=== PATIENT | female | born 2005 | race Caucasian/White ===

== ENCOUNTER 2023-12-01 19:05 | Emergency (ER) | payer BC, SELFPAY ==
[2023-12-01 19:15] VITALS: BP 143/80; BMI 30.1
[2023-12-01 19:55] LABS: % Basophils 0.7 % (0-2); % Immature Granulocytes 0.3 % (0-0.5); % Lymphocytes 35.2 % (20.5-51.1); % Monocytes 8.1 % (1.7-9.3); % Neutrophils 51.7 % (42.2-75.2); Absolute Eosinophils 0.2 10^3/uL (0-0.7); Absolute Lymphocytes 2.1 10^3/uL (1.2-3.4); Absolute Monocytes 0.5 10^3/uL (0.1-0.6); Absolute Neutrophils 3.1 10^3/uL (1.4-6.5); Hematocrit 38.3 % (37.0-47.0); Hemoglobin 13.2 g/dL (12.0-16.0); Mean Corp Hgb Conc. 34.5 g/dL (33.0-37.0); Mean Corpuscular Hgb 27.3 pg (27.0-31.0); Mean Corpuscular Volume 79.1 fL (81.0-99.0); Mean Platelet Volume 8.9 fL (7.4-10.4); Nucleated Red Blood Cells % 0 %; Platelet Count 459 10^3/uL (130-400); Red Blood Cell Count 4.84 10^6/uL (4.20-5.40); Red Cell Dist. Width 13.2 % (11.5-14.5)
[2023-12-01] MEDS: OMNIPAQUE 50 ML PO (19:58)
[2023-12-01 20:00] LABS: Erythrocyte Sed Rate 13 mm/hour (0-20)
[2023-12-01 20:04] VITALS: BP 109/90
[2023-12-01 20:13] LABS: HCG, Serum Qualitative Screen Negative
[2023-12-01 20:15] LABS: ALT (SGPT) 14 U/L (0-35); AST (SGOT) 26 U/L (14-36); Albumin 4.3 g/dl (3.5-5.0); Alkaline Phosphatase 85 U/L (38-126); Blood Urea Nitrogen 4 mg/dl (7-17); Calcium 9.6 mg/dl (8.4-10.2); Carbon Dioxide 24 mmol/L (22-30); Chloride 102 mmol/L (98-107); Estimated Creatinine Clearance > 125 ml/min; Glucose 99 mg/dl (70-99); Potassium 3.9 mmol/L (3.5-5.1); Sodium 136 mmol/L (135-145); Total Bilirubin 0.5 mg/dl (0.2-1.3); Total Protein 7.4 g/dl (6.3-8.2); eGFR > 60.00
--- NOTE | 2023-12-01 20:40 | ED.GENMED ---
History of Present Illness
General
Chief Complaint: Abdominal Symptoms
Source: patient and family (Mother)
Exam Limitations: none
Time Seen by Provider: 12/01/23 19:20
Nursing documentation reviewed up to this point in time: agreed with
Travel History
Have you had any contact with someone who has COVID-19?: No
Do you have any symptoms of coronavirus? Fever > 100 degrees, chills, cough, shortness of breath, sore throat, loss of taste or smell, muscle aches, or headache?: No
History of Present Illness
History of Present Illness:
17-year-old female presents for evaluation of abdominal pain and bloody diarrhea. Patient reports that she has had intermittent episodes of bloody diarrhea for the past 4 months she feels they are increasing in frequency. She says she has had
daily bloody stools for almost a month. She says that she has associated crampy abdominal pain. She says that she has not had any nausea or vomiting. Has not had any fevers or chills. She denies any recent travel. She denies any recent
antibiotics. She does not have any vaginal bleeding�she is on OCPs and says she has irregular periods. She says that she had outpatient stool studies that were negative. She says that she had outpatient blood work which was reassuring. She says
she called her doctor to disclose that episodes were increasing in frequency and she was directed to the emergency room to be assessed. There is apparently a family history of inflammatory bowel disease.
Review of Systems
Review of Systems
All Other Systems: ROS reviewed and negative except as documented in HPI and ROS
Constitutional: Denies fever or chills
EENT: Denies sore throat or runny nose
Respiratory: Denies cough or trouble breathing
Cardiac: Denies chest pain or palpitations
ABD/GI: Reports abdominal pain, diarrhea and bloody stools; Denies nausea or vomiting
: Denies dysuria or flank pain
Musculoskeletal: Denies neck pain or back pain
Neurological: Denies headache, weakness or numbness
Phy Exam
Physical Exam
Physical Exam:
General: Awake, alert, oriented x3; no acute distress
Head: Normocephalic, atraumatic
Eyes: Conjunctiva normal, EOMI
Throat: Airway intact, handling secretions
Neck: Trachea midline, supple without meningismus
Lungs: Clear to auscultation bilaterally, no wheezing, rales, rhonchi
Heart: Regular rate and rhythm, no murmurs, gallops, or rubs
Abd: Soft, non distended, nontender
Neuro: Cranial nerves grossly intact, speech fluid
Skin: no rash
Extremities: No edema in extremities, equal pulses in all extremities
Scores
Heart Failure Risk
Heart Failure Risk Score: Not Applicable
Heart Score for Chest Pain Patients
STEMI patient?: Not applicable
Withdrawal Assessment of Alcohol
Withdrawal Assessment Completed?: Not applicable
Course
Orders/Labs/Results
Orders:
Orders
12/01/23 19:30
CT Abd/pel W Iv And Oral Contr Urgent
Comment:
Reason For Exam: abd pain, bloody diarrhea
Iohexol [Omnipaque] See Protocol PO NOW STA
Test Result ONCE
12/01/23 19:48
CRP [C-Reactive Protein] Urgent
Complete Blood Count/With Diff Urgent
Comprehensive Metabolic Panel Urgent
ESR [Erythrocyte Sed Rate] Urgent
HCG, Serum Qualitative Screen Urgent
Abnormal Lab Results
12/01/23
19:48
MCV 79.1 L fL
(81.0-99.0)
Plt Count 459 H 10^3/uL
(130-400)
BUN 4 L mg/dl
(7-17)
C-Reactive Protein 14.80 H mg/L
(0.0-10.00)
12/01/23 19:48
12/01/23 19:48
Vital Signs
Initial and Last Documented VS:
Initial Vital Signs
Temp Pulse Resp BP Pulse Ox
37.2 C 94 16 143/80 99
12/01/23 19:15 12/01/23 19:15 12/01/23 19:15 12/01/23 19:15 12/01/23 19:15
Last Documented Vital Signs
Temp Pulse Resp BP Pulse Ox
37.2 C 94 16 132/88 99
12/01/23 19:15 12/01/23 19:15 12/01/23 19:15 12/01/23 21:22 12/01/23 20:53
MDM/Problems Addressed
Differential Diagnosis Includes:
Infectious colitis, enteritis, Crohn's disease/ulcerative colitis
MDM/Problems Addressed:
17-year-old female presents for worsening bloody diarrhea over the past few months associate with crampy abdominal pain. Vital signs are within normal limits. Physical exam as above. Plan to send labs including CBC and CMP, ESR/CRP. Will send
for CT of the abdomen pelvis. Monitor closely reassess after the above.
Labs reviewed: CBC shows no clinically significant abnormalities�notably she has a normal hemoglobin. Her CMP is within acceptable range. hCG negative. CRP mildly elevated, ESR normal. Awaiting results of CT.
CT shows no convincing acute pathology. Patient has remained stable here has not a bowel movement. Think she stable for discharge at this point can follow-up with her primary doctor. She also has a GI appointment already scheduled for 12/12/2023
which she will keep. Patient and mother feel comfortable with this plan. Spoke about return precautions all questions answered.
*Radiology
Radiology exam reviewed: radiology read reviewed
*Pulse Oximetry
Patient hypoxic: no
*Critical Care Note
Total Time (30-74mins, 75-104mins- exclusive of procedures): Not Applicable
Data Reviewed
Source: patient and family (Mother)
Patient Management
Social determinants of health affecting care: Strong social support
ED Attending Note
-
Portions of this chart may have been created with voice recognition software.� Occasional wrong word or��sound alike� substitutions may have occurred due to the inherent limitations of voice recognition software.
Discharge Plan
Departure
Patient Disposition: Home (Routine Discharge)
Date of Disposition: 12/01/23
Time of Disposition: 22:58
Patient with high blood pressure during this ER visit?: No
Discharge Problem:
Bloody diarrhea
Instructions: Inflammatory Bowel Disease (DC)
Prescriptions:
No Action
cephalexin 500 MG capsule
500 mg PO QID Qty: 28 0RF
Referrals:
Nancy Wheeler MD [Family Provider] - Call in 1-3 days for appt
Activity Restrictions/Additional Instructions:
You should follow-up with the raw material handler as scheduled on 12/12/2023. You should also follow-up with your primary doctor after your visit to the emergency room�you should call to follow-up within the next week.
Thank you for visiting the Emergency Department at [facility].
1. Please schedule a follow up appointment as directed. Call first thing tomorrow morning to make an appointment.
2. If indicated, please take your medications as instructed and indicated on discharge paperwork.
3. If any of your symptoms do not improve, or persist, or become more severe within 6-12 hours, please return to the emergency department for further care.
4. Please return to the emergency department if you develop a headache, neck pain/stiffness, fever greater than 100.4F, chest pain, shortness of breath, persistent nausea, vomiting, slurred speech, difficulty walking, numbness/tingling, weakness,
signs of infection or any other symptoms that are worrisome to you.
Please call [phone] if you have any questions.
Interventions
Interventions:
*Risk Screen - Suicide Last Done: 12/01/23 19:15
*General Assessment Last Done: 12/01/23 21:26
*Neglect/Abuse Screening Last Done: 12/01/23 19:15
*ED COVID-19 Vaccine History Last Done: 12/01/23 19:15
GA-Yqiyjv-Bnlxjaydri Assessment Last Done: 12/01/23 21:22
[2023-12-01 21:22] VITALS: BP 132/88
[2023-12-01 22:47] VITALS: BP 137/71
[2023-12-01 23:00] VITALS: BP 120/58
== END 2023-12-01 23:14 | disposition home or self-care (01) ==
LOC: EMR 19:05
PROVIDERS: EMERGENCY PHYSICIAN Emergency Medicine; FAMILY PHYSICIAN Psychologist Clinical
DX: R19.7 Diarrhea, unspecified (principal); K92.1 Melena
CPT/HCPCS: 99285; 74177; 80053; 84703; 85025; 85652; 86140; Q9967

== ENCOUNTER → 2024-05-14 15:47 | Outpatient (REF) | payer BC, SELFPAY ==
[2024-05-14 10:21] LABS: Hematocrit 37.1 % (37.0-47.0); Hemoglobin 11.9 g/dL (12.0-16.0); Mean Corp Hgb Conc. 32.1 g/dL (33.0-37.0); Mean Corpuscular Hgb 24.4 pg (27.0-31.0); Mean Platelet Volume 9.1 fL (7.4-10.4); Platelet Count 388 10^3/uL (130-400); Red Blood Cell Count 4.88 10^6/uL (4.20-5.40); White Blood Cell Count 4.5 10^3/uL (4.8-10.8)
[2024-05-14 10:43] LABS: % Basophils 0.2 % (0-2); % Eosinophils 1.6 % (0-6); % Lymphocytes 58.3 % (20.5-51.1); % Monocytes 6.7 % (1.7-9.3); % Neutrophils 33.2 % (42.2-75.2); Absolute Eosinophils 0.1 10^3/uL (0-0.7); Absolute Lymphocytes 2.6 10^3/uL (1.2-3.4); Absolute Monocytes 0.3 10^3/uL (0.1-0.6); Absolute Neutrophils 1.5 10^3/uL (1.4-6.5); Nucleated Red Blood Cells % 0 %
[2024-05-14 11:40] LABS: Folate 17.9 ng/ml (2.76-20); Vitamin B12 249 pg/ml (239-931)
== END ==
LOC: OIDL 15:47
PROVIDERS: ATTENDING PHYSICIAN Nurse Practitioner Adult Health
DX: D50.9 Iron deficiency anemia, unspecified (principal)
CPT/HCPCS: 82607; 82746; 85025

== ENCOUNTER 2024-10-22 08:21 | Day surgery (SDC) | payer BC, SELFPAY | END 2024-10-22 08:34 | disposition home or self-care (01) | LOC: GI 08:21 | PROVIDERS: ATTENDING PHYSICIAN Internal Medicine Gastroenterology | DX: K51.00 Ulcerative (chronic) pancolitis without complications (principal); K64.0 First degree hemorrhoids | CPT/HCPCS: 45380; 88305 ==